=== PATIENT | male | born 1995 | race Caucasian/White ===

== ENCOUNTER 2018-03-11 11:59 | Emergency (ER) | END 2018-03-11 14:51 | disposition home or self-care (01) ==

== ENCOUNTER 2019-06-05 18:11 | Emergency (ER) | payer OTHER ==
[~2019-06-05] VITALS: Ht 188 cm; Wt 95.8 kg
[~2019-06-05 18:11] MED LIST: ALBU18HF INHALATION; ALBU8.5H8 INH; AZIT500T3 PO; BENZ-6 PO; DOXY100T20 PO; IBUP-1542 PO; PRED20TA PO
[2019-06-05 18:19] VITALS: Ht 188 cm; Wt 95.8 kg
[2019-06-05] MEDS ORDERED: DIPHTH/TET/ACEL PERTUSS (ADULT) 0.5 ML VIAL IM* ONE (21:00)
[2019-06-05] MEDS ORDERED: ACETAMINOPHEN 325 MG TAB PO ONE (21:00)
[2019-06-05] MEDS ORDERED: LIDOCAINE 1% (MDV) 20 ML INJ SC ONE (21:00)
[2019-06-05 21:51] VITALS: BP 144/92; PULSE 67; RESP 20
== END 2019-06-05 21:53 | disposition home or self-care (01) ==
LOC: FTE 18:11
DX: S60.455A Superficial foreign body of left ring finger, initial encounter (principal); W45.8XXA Other foreign body or object entering through skin, initial encounter; Y92.9 Unspecified place or not applicable; Z23 Encounter for immunization
CPT/HCPCS: 64450; 90471; 90715; Z7502; Z7610